=== PATIENT | male | born 1985 | race Asian ===

== ENCOUNTER → 2017-01-27 | Outpatient (CLI) | payer BC ==
--- NOTE | 2017-01-27 08:49 | DIAGNOSTIC IMAGING REPORT ---
TESTICULAR ULTRASOUND HISTORY: Right-sided TESTICULAR PAIN COMPARISON: None. FINDINGS: Right testis: 3.9 x 2.7 x 2.0 cm. There are no intratesticular masses. Normal color flow. No hydrocele. A 3 mm cyst within the epididymal head. Left testis: 4.0 x 2.3 x 1.9 cm. A 2 mm hyperechoic focus within the left testis. Normal color flow. No hydrocele. The epididymis is unremarkable. IMPRESSION: 1. Normal right testis. 2. A 2 mm hyperechoic focus within the left testis. This is unlikely to represent a testicular mass. However, six-month ultrasound follow up is recommended to ensure stability. 3. Right epididymal head cysts. Electronically signed by: Rocael Brambila M.D. 01/27/2017 8:47 AM Dictated Date/Time: 01/27/2017 8:46 AM
== END | disposition home or self-care (01) ==
LOC: C.ULTRBC 08:15
PROVIDERS: ATTEND Urology
DX: N50.819 Testicular pain, unspecified (principal)